=== PATIENT | female | born 1955 | race Caucasian/White ===

== ENCOUNTER → 2016-10-20 | Outpatient (CLI) | payer OTHER ==
[~2016-10-20] MED LIST: ALTACE DPS5 MG PO; BACITRACIN15 G1 TP; CALCIUM500 M1 PO; LEXAPRO DPS20 MG PO; NORCO 5-325 TA1 EACH PO; OMEGA 3-6-9 PO; PROTONIX40 MG PO; RESTORIL DPS15 MG PO; SYNTHROID88 MCG PO; THERAPEUTIC MUL1 TAB PO; ZYRTEC DPS10 MG PO
== END | disposition home or self-care (01) ==
LOC: RAD.S 13:47
PROC: 0GBH3ZX Excision of Right Thyroid Gland Lobe, Percutaneous Approach, Diagnostic (ICD-10-PCS; principal; 2016-10-20)
DX: C73 Malignant neoplasm of thyroid gland (principal)

== ENCOUNTER 2016-12-06 05:50 | Observation (INO) | payer OTHER ==
[~2016-12-06] VITALS: Ht 160 cm; Wt 69.2 kg
--- NOTE | 2016-12-07 06:36 | OR ---
ADMIT: 12/06/2016 RM/LOC: [address] [facility] MR#: [id number] [address] [address] OUSMANE BURGESS [address] [place] [address] Operative/Delivery Room Report SEX: F AGE: 61 : 1955 SURGERY DATE: 12/06/2016 SURGEON: Timoteo Briceño MD PREOPERATIVE DIAGNOSIS: Right thyroid nodule, suspicious papillary thyroid carcinoma. POSTOPERATIVE DIAGNOSIS: Papillary thyroid carcinoma, right thyroid nodule. OPERATION: Right thyroid lobectomy with frozen section, left thyroid lobectomy (completion total thyroidectomy). ANESTHESIA: General oral endotracheal. BLOOD LOSS: 60 mL. COMPLICATIONS: None. DRAINS: Everardo-Ramirez 7 mm. DESCRIPTION OF PROCEDURE: With the patient in supine position under general endotracheal anesthesia, neck was extended slightly. Anterior neck was prepped with ChloraPrep, allowed 3 minutes to dry. The patient was then draped sterilely. An incision was infiltrated with Xylocaine with epinephrine 1:100,000, and after good vasoconstriction, an incision made following natural skin crease low in the neck through skin, subcutaneous tissue, and platysma muscle with skin flaps elevated superiorly and inferiorly exposing the strap muscles which were in the midline. The thyroid isthmus was identified. The right thyroid lobe was then exposed by retraction of the strap muscles laterally. Blunt dissection was used to expose the lateral lobe and small vessels treated with clamping and coagulation. The lobe was grasped with [place] tenaculum and retracted medially. Dissection was then continued directly on the thyroid capsule. Tissue consistent with both the superior and inferior parathyroid glands were identified and preserved. The recurrent laryngeal nerve was identified, its identity and function confirmed intact by NIM-2 stimulation. The gland was pedicled at Petros's ligament which was transected and the isthmus was then transected with electrocautery. The right lobe was sent for frozen section analysis. The wound was irrigated with saline and hemostasis was assured. Again, the recurrent laryngeal nerve was tested and function confirmed intact by NIM-2 stimulation. Results of frozen section indicated lesion consistent with papillary thyroid carcinoma. I, therefore, performed a left thyroid lobectomy to complete a total thyroidectomy, it was performed in a very similar fashion. Again, the recurrent laryngeal nerve was identified and its function confirmed intact. Tissue consistent with the inferior parathyroid was adhered to the posterior aspect of the lobe and was ADMIT: 12/06/2016 RM/LOC: [address] [facility] MR#: [id number] [address] [address] [place] [address] Operative/Delivery Room Report SEX: F AGE: 61 : 1955 removed with the thyroid lobe, it was subsequently from the lobe and reimplanted in the left strap muscles, tagged with silk suture. The superior parathyroid gland was identified and preserved. The wound was irrigated with saline. Hemostasis was assured. During the procedure, she lost approximately 60 mL of blood, but there was good hemostasis. A Everardo-Ramirez drain was placed, brought out the left side of strap muscle incision. Wound was closed in layers with 3-0 chromic catgut to the midline strap muscles, platysma layer and a running 5-0 Prolene horizontal mattress suture to the skin. The drain was sutured to the skin with silk. She emerged from general anesthesia in the operating room and was extubated in the operating room, and transferred to the recovery room in good condition. She experienced no stridor nor airway distress. Timoteo Briceño MD/ oscar JOB #: [id number] CC: Timoteo Briceño, Attending Physician Alexa Parrish, Family Physician
[2016-12-08] MEDS ORDERED: LEXAPRO DPS20 MG PO (11:09)
[2016-12-08] MEDS ORDERED: ALTACE DPS5 MG PO (11:09)
[2016-12-08] MEDS ORDERED: SYNTHROID88 MCG PO (11:09)
[2016-12-08] MEDS ORDERED: RESTORIL DPS15 MG PO (11:10)
[2016-12-08] MEDS ORDERED: PROTONIX40 MG PO (11:10)
[2016-12-08] MEDS ORDERED: ZYRTEC DPS10 MG PO (11:10)
[2016-12-08] MEDS ORDERED: THERAPEUTIC MUL1 TAB PO (11:10)
[2016-12-08] MEDS ORDERED: CALCIUM500 M1 PO (11:11)
[2016-12-08] MEDS ORDERED: NORCO 5-325 TA1 EACH PO (11:11)
[2016-12-08] MEDS ORDERED: OMEGA 3-6-9 PO (11:11)
[2016-12-08] MEDS ORDERED: BACITRACIN15 G1 TP (11:12)
--- NOTE | 2016-12-21 08:04 | HP ---
ADMIT: 12/06/2016 RM/LOC: [facility] MR#: [id number] [address] [facility] [address] [place], [place] [address] OUSMANE BURGESS [address] [facility] [place], [place] [address] Pre-OP History and Physical SEX: F AGE: 61 : 1955 DATE OF SERVICE: HISTORY OF PRESENT ILLNESS: Ms. Burgess is a 61-year-old, who is admitted at this time for right thyroid lobectomy and diagnosis and treatment of a right thyroid mass that by FNA is suspicious of papillary thyroid carcinoma. The rationale for the excisional biopsy, the risks including risks to the recurrent laryngeal nerve, parathyroid glands, and the postop course has been discussed. Frozen section will be obtained and if malignancy is confirmed, total thyroidectomy will be carried out. She has a history of hypothyroidism and is presently on thyroid hormone replacement using levothyroxine. She is admitted at this time for general anesthesia. MEDICATIONS: Prior to admission: 1. Ramipril. 2. Levothyroxine. 3. Imitrex. 4. Multiple vitamins. 5. Lexapro. ALLERGIES: NO MEDICINES KNOWN. PAST MEDICAL HISTORY: Cholecystectomy. REVIEW OF SYSTEMS: Positive for high blood pressure. She does not have known lower respiratory, cardiovascular, GI, , hematologic, or neurologic disorders. SOCIAL HISTORY: She drinks caffeine in the form of soda. She does not drink alcohol, nor does she use tobacco. FAMILY HISTORY: No known anesthetic complications. No coagulopathies. PHYSICAL EXAMINATION: GENERAL: A 61-year-old, alert. HEENT: Pupils are equal. No proptosis nor exophthalmos. Ear canals, TMs, and middle ears are clear. Nose, airway patent. No mucus or purulence. Mouth and pharynx clear. Good symmetry. Larynx, good symmetry, structure, ADMIT: 12/06/2016 RM/LOC: [facility] MR#: [id number] [address] [facility] [address] [place], [place] [address] OUSMANE BURGESS [address] [place] [address] Pre-OP History and Physical SEX: F AGE: 61 : 1955 and function. NECK: Slight right thyroid enlargement, indistinct mass, right thyroid lobe. Nontender. No cervical adenopathy. LUNGS: Clear. HEART: Rhythm regular. EXTREMITIES: Normal. IMPRESSION: Right thyroid mass. Suspicious of papillary thyroid carcinoma by fine-needle aspirate biopsy. PLAN: Right thyroid lobectomy with frozen section and possible total thyroidectomy. Timoteo Briceño MD/ oscar JOB #: [id number] CC: Timoteo Briceño, Attending Physician Alexa Parrish, Family Physician
== END 2016-12-07 07:47 | disposition home or self-care (01) ==
LOC: WOR 05:50 → 6PED 09:20
PROVIDERS: ADMIT Otolaryngology
PROC: 0GTK0ZZ Resection of Thyroid Gland, Open Approach (ICD-10-PCS; principal; 2016-12-06)
DX: C73 Malignant neoplasm of thyroid gland (principal); I10 Essential (primary) hypertension; K21.9 Gastro-esophageal reflux disease without esophagitis; Z79.899 Other long term (current) drug therapy; Z90.49 Acquired absence of other specified parts of digestive tract